=== PATIENT | male | born 1945 | race Caucasian/White ===

== ENCOUNTER 2018-09-23 09:10 | Emergency (ER) | payer MEDICARE, BC ==
[2018-09-23 09:53] VITALS: BP 138/79
--- NOTE | 2018-09-23 11:33 | UC ---
Respiratory Complaint HPI - HPI Summary HPI Summary: 73-year-old male comes in with a chief complaint of 2 weeks of chest congestion with a cough. It's been having upper respiratory tract infection symptoms for about 2 weeks now. He's had some yellow sputum. In the evening when he lays down he starts having a cough. He was some [id number] medications with almost no relief. He did drink buttermilk and that made the cough better. No recent fevers. Patient reports that this morning about 7:00 he had chest tightness that went across his chest. It lasted for about half an hour. It was mild to moderate discomfort. Also had some left-sided chest discomfort yesterday while at rest it lasted about 4 hours. Describes it as a tightness. For both episode she did not have any nausea or sweating or shortness of breath. Does have a history of SVT and has had an ablation. No complaint of any palpitations during these episodes. The discomfort did not radiate into the neck or the arm. Patient has no chest discomfort at this time. No pedal edema no calf pain. - History of Current Complaint Chief Complaint: UCRespiratory Stated Complaint: COUGH Time Seen by Provider: 09/23/18 11:06 Pain Intensity: 4 - Allergies/Home Medications Allergies/Adverse Reactions: Allergies Allergy/AdvReac Type Severity Reaction Status Date / Time No Known Allergies Allergy Verified 09/23/18 09:35 Home Medications: Home Medications Amlodipine Besylate [Norvasc 10 mg tab] 10 mg PO DAILY 09/23/18 [History Confirmed 09/23/18] Atorvastatin* [Lipitor*] 40 mg PO DAILY 09/23/18 [History Confirmed 09/23/18] Latanoprost 0.005%* [Xalatan 0.005%*] 1 drop BOTH EYES QPM 09/23/18 [History Confirmed 09/23/18] Nebivolol TAB (NF) [Bystolic TAB (NF)] 2.5 mg PO DAILY 09/23/18 [History Confirmed 09/23/18] Timolol 0.5% OPTH.SAL* [Timoptic 0.5% Opth*] 1 drop BOTH EYES DAILY 09/23/18 [ History Confirmed 09/23/18] PMH/Surg Hx/FS Hx/Imm Hx Previously Healthy: Yes Endocrine History: Dyslipidemia Cardiovascular History: Hypertension Other Cardiovascular History: SVT Other History Of: Anticoagulant Therapy - Low dose 81 mg ASA - Surgical History Surgical History: Yes Surgery Procedure, Year, and Place: 1996 - L5 laminectomy. cardiac ablation - Family History Known Family History: Positive: Unknown - Social History Alcohol Use: None Substance Use Type: None Smoking Status (MU): Never Smoked Tobacco Review of Systems All Other Systems Reviewed And Are Negative: Yes Constitutional: Positive: Negative Skin: Positive: Negative Eyes: Positive: Negative ENT: Positive: Nasal Discharge - MINIMAL Respiratory: Positive: Cough Cardiovascular: Positive: Chest Pain Gastrointestinal: Positive: Negative Motor: Positive: Negative Neurovascular: Positive: Negative Musculoskeletal: Positive: Negative. Negative: Calf Tenderness, Edema Neurological: Positive: Negative Psychological: Positive: Negative Is Patient Immunocompromised?: No Physical Exam Triage Information Reviewed: Yes Appearance: Well-Appearing, No Pain Distress, Well-Nourished Vital Signs: Initial Vital Signs Temp 97.6 F 09/23/18 09:40 Pulse 67 09/23/18 09:40 Resp 18 09/23/18 09:40 BP 138/79 09/23/18 09:40 Pulse Ox 97 09/23/18 09:40 Vital Signs Reviewed: Yes Eye Exam: Normal Eyes: Positive: Conjunctiva Clear ENT: Positive: TMs normal. Negative: Pharyngeal erythema, Nasal congestion, Nasal drainage Neck exam: Normal Neck: Positive: Supple Respiratory: Positive: Lungs clear, Normal breath sounds, No respiratory distress Cardiovascular: Positive: RRR Musculoskeletal Exam: Normal Musculoskeletal: Positive: Strength Intact, ROM Intact, No Edema Neurological Exam: Normal Neurological: Positive: Alert, Muscle Tone Normal Psychological Exam: Normal Psychological: Positive: Age Appropriate Behavior Skin Exam: Normal UC Diagnostic Evaluation - Laboratory O2 Sat by Pulse Oximetry: 97 - EKG Cardiac Rate: NL - AT 0943 Cardiac Rhythm: Sinus: Normal - 61 BPM Ectopy: None ST Segment: Normal Respiratory Course/Dx - Course Course Of Treatment: Order Information: CHEST PA LAT 2 VWS. Accession Number: [id number]. CPT: 53258. Indication: Shortness of breath. 2 views of the chest including dual energy PA views demonstrate no mediastinal shift. Heart is of normal size and configuration. Lung sorto are clear. IMPRESSION: No active cardiopulmonary disease is noted. . <Electronically signed by Radha Rodriguez MD in OV> 1024. We discussed the x-ray report and the EKG with the patient and his . No sign of pneumonia on the chest x-ray. No signs of ischemia or regular rhythm on EKG. With the symptoms going on for 2 weeks we will treat with an antibiotic and have him follow-up his primary care physician if not completely improved his respiratory symptoms. We discussed the episodes of chest tightness. He was not nauseous sweaty short of breath and he had no radiation of the discomfort. Reports that he had a normal cardiac stress test with his distance education teacher in March 2018. We discussed going directly to the emergency department now for further evaluation of the chest tightness. At this time the patient prefers to follow-up his primary care doctor and his distance education teacher and if he has any further chest tightness he will go to the emergency department at that time. - Differential Dx/Diagnosis Provider Diagnosis: Bronchitis, Chest pain Discharge - Sign-Out/Discharge Documenting (check all that apply): Patient Departure All imaging exams completed and their final reports reviewed: Yes - Discharge Plan Condition: Stable Disposition: HOME Prescriptions: Amoxicillin/Clavulanate TAB* [Augmentin TAB 875*] 875 mg PO BID #20 tab Patient Education Materials: Chest Pain (ED), Acute Bronchitis (ED) Referrals: Rayna Roche MD [Primary Care Provider] - Additional Instructions: FOLLOW UP WITH YOUR PRIMARY CARE DOCTOR AND METAL SHEET ROLLER OPERATOR. GO TO THE EMERGENCY DEPARTMENT FOR WORSENING OF YOUR CONDITION; CHEST PAIN, SHORTNESS OF BREATH, YOU FEEL ILL OR QUESTIONS OR CONCERNS. - Billing Disposition and Condition Condition: STABLE Disposition: Home
== END 2018-09-23 11:45 | disposition home or self-care (01) ==
LOC: UCCORT 09:10
DX: J40 Bronchitis, not specified as acute or chronic (principal); R07.89 Other chest pain; E78.5 Hyperlipidemia, unspecified; I10 Essential (primary) hypertension; I47.1 Supraventricular tachycardia; Z79.01 Long term (current) use of anticoagulants; Z79.899 Other long term (current) drug therapy
CPT/HCPCS: 71046; 99212; G0463

== ENCOUNTER 2018-12-16 07:20 | Emergency (ER) | payer MEDICARE, BC ==
[2018-12-16 07:33] VITALS: BP 115/65
--- NOTE | 2018-12-16 07:47 | UC ---
Respiratory Complaint HPI - HPI Summary HPI Summary: cough x 1 week cough is dry , chest congestion , worse with deep breathing better with rest, nasal congestion , sore throat, no fever, + chills, body aches and fatigue - History of Current Complaint Chief Complaint: UCRespiratory Stated Complaint: COUGH,THROAT COMPLAINT Time Seen by Provider: 12/16/18 07:30 Hx Obtained From: Patient Onset/Duration: Gradual Onset, Lasting Days - 7, Still Present Timing: Constant Severity Initially: Moderate Severity Currently: Moderate Pain Intensity: 7 Character: Cough: Nonproductive Aggravating Factors: Exertion, Deep Breaths Alleviating Factors: Nothing Associated Signs And Symptoms: Positive: Chills, URI, Nasal Congestion. Negative: Dyspnea, Fever, Pleuritic Chest Pain, Wheezing, Hemoptysis, Dizziness , Calf Pain, Calf Swelling, Edema - Allergies/Home Medications Allergies/Adverse Reactions: Allergies Allergy/AdvReac Type Severity Reaction Status Date / Time No Known Allergies Allergy Verified 12/16/18 07:33 PMH/Surg Hx/FS Hx/Imm Hx - Additional Past Medical History Additional PMH: hypercholesterolemia, glaucoma Cardiovascular History: Cardiac Disease - SVT, Hypertension Other History Of: Anticoagulant Therapy - Low dose 81 mg ASA - Surgical History Surgical History: Yes Surgery Procedure, Year, and Place: 1996 - L5 laminectomy. cardiac ablation - Family History Known Family History: Positive: Unknown Negative: Diabetes - Social History Alcohol Use: Weekly Substance Use Type: None Smoking Status (MU): Never Smoked Tobacco Review of Systems All Other Systems Reviewed And Are Negative: Yes Constitutional: Positive: Chills, Fatigue Skin: Positive: Negative Eyes: Positive: Negative ENT: Positive: Sore Throat, Nasal Discharge Respiratory: Positive: Cough Cardiovascular: Positive: Negative Is Patient Immunocompromised?: No Physical Exam Triage Information Reviewed: Yes Appearance: Well-Appearing, No Pain Distress, Well-Nourished Vital Signs: Initial Vital Signs Temp 97.5 F 12/16/18 07:27 Pulse 69 12/16/18 07:27 Resp 18 12/16/18 07:27 BP 115/65 12/16/18 07:27 Pulse Ox 98 12/16/18 07:27 Vital Signs Reviewed: Yes Eye Exam: Normal Eyes: Positive: Conjunctiva Clear ENT: Positive: Normal ENT inspection, Hearing grossly normal, Pharynx normal, Nasal congestion, TMs normal. Negative: Tonsillar swelling, Tonsillar exudate Neck exam: Normal Neck: Positive: Supple, Nontender, No Lymphadenopathy Respiratory: Positive: Chest non-tender, Lungs clear, Normal breath sounds Cardiovascular: Positive: RRR, No Murmur, Pulses Normal Abdominal Exam: Normal Skin Exam: Normal Respiratory Course/Dx - Differential Dx/Diagnosis Provider Diagnosis: Bronchitis Discharge - Sign-Out/Discharge Documenting (check all that apply): Patient Departure All imaging exams completed and their final reports reviewed: No Studies - Discharge Plan Condition: Stable Disposition: HOME Prescriptions: Azithromycin TAB* [Zithromax TAB (Z-GERMAIN) 250 mg #6 tabs] 2 tab PO .TODAY, THEN 1 DAILY #1 [place] Codeine Phosphate/Guaifenesin [Cheratussin AC] 10 ml PO Q8H #120 ml MDD 30 ml Patient Education Materials: Acute Bronchitis (ED) Referrals: Rayna Roche MD [Primary Care Provider] - 7 Days - Billing Disposition and Condition Condition: STABLE Disposition: Home
== END 2018-12-16 07:48 | disposition home or self-care (01) ==
LOC: UCCORT 07:20
DX: J40 Bronchitis, not specified as acute or chronic (principal); R09.81 Nasal congestion; I10 Essential (primary) hypertension; I47.1 Supraventricular tachycardia; Z79.01 Long term (current) use of anticoagulants
CPT/HCPCS: 99212; G0463